=== PATIENT | female | born 1930 ===

== ENCOUNTER 2020-04-08 09:41 | Outpatient (CLI) | payer OTHER | END 2020-04-08 15:00 | disposition home or self-care (01) | LOC: TOM 09:41 | PROVIDERS: ATTEND Internal Medicine Gastroenterology | DX: R10.84 Generalized abdominal pain (principal); I70.8 Atherosclerosis of other arteries ==

== ENCOUNTER 2020-04-20 08:58 | Outpatient (CLI) | payer OTHER | END 2020-04-20 09:03 | disposition home or self-care (01) | LOC: RX STUDY 08:58 | PROVIDERS: ATTEND Internal Medicine Gastroenterology | DX: R13.19 Other dysphagia (principal) ==